=== PATIENT | female | born 1950 | race Caucasian/White ===

== ENCOUNTER 2016-08-17 09:02 | Observation (INO) ==
[2016-08-17] MEDS ORDERED: Ipratropium/Albuterol Neb 3 ML IH ONE (09:28)
[2016-08-17] MEDS ORDERED: Albuterol 2.5 MG/3 ML NEBULIZER IH ONE (09:28)
[2016-08-17] MEDS ORDERED: predniSONE 20 MG TABLET PO ONE (09:28)
--- NOTE | 2016-08-17 09:32 | Emergency Department Note ---
Disposition Clinical Impression: COPD exacerbation Disposition: Admitted As Inpatient Condition: Good Referrals: Aaron Mays DO [Primary Care Provider] - Forms: ED Satisfaction Letter Time of Disposition: 11:02 SOB HPI - General Chief Complaint: ED Chest Pain Stated Complaint: chest Pain/diff breathing Time Seen by Provider: 08/17/16 09:25 Source: patient Mode of arrival: EMS Limitations: no limitations Nursing Notes Reviewed: Yes Vital Signs Reviewed: Yes - History of Present Illness 66-year-old white female presents with difficulty breathing. She woke up around 8 AM and was short of breath. She states a short while later she developed some burning in her lower sternal area. This lasted about an hour and went away. She has had a cough for a month. She has been treated for bronchitis and finished antibiotics up on Wednesday. Her cough continues. It is intermittently productive of yellowish sputum. No fever. She states she was started on nebulizer treatments within the last month since she developed a bronchitis. She last used her nebulizer this morning. She states she is using it "about 2 times a day". She has a history of lung cancer, and had a lobectomy about 3 years ago. She continues to smoke one pack per day. Pt Subjective Complaint: shortness of breath, cough Onset (ago): hour(s) (1) Context: recent illness Severity: moderate Consistency/Duration: constant Improves with: nothing Worsens with: coughing Known history of: COPD, other (Lung cancer, bronchitis) Associated symptoms: Reports: chest pain (Burning lower sternal pain), cough, sputum production Treatment prior to arrival: none Cough present: Yes Cough Description: Involuntary Cough Frequency: Intermittent Sputum production: Yes Sputum Amount: Small Sputum Color: Yellow - Related Data Home oxygen amount: none Home Medications Medication Instructions Recorded Confirmed Aspirin [Lo-Dose Aspirin EC] 81 mg PO DAILY 08/17/16 08/17/16 Atenolol [Tenormin] 25 mg PO DAILY 08/17/16 08/17/16 Clopidogrel [Plavix] 75 mg PO DAILY 08/17/16 08/17/16 Lisinopril [Zestril] 10 mg PO DAILY 08/17/16 08/17/16 Lovastatin [Altoprev] 20 mg PO DAILY 08/17/16 08/17/16 Metformin HCl [Metformin HCl ER] 500 mg PO DAILY 08/17/16 08/17/16 NIFEdipine [Nifedipine] 60 mg PO DAILY 08/17/16 08/17/16 Omeprazole [PriLOSEC] 20 mg PO DAILY 08/17/16 08/17/16 Allergies Allergy/AdvReac Type Severity Reaction Status Date / Time levofloxacin [From Levaquin] Allergy Hives Verified 08/17/16 09:21 Sulfa (Sulfonamide Allergy Heartburn Verified 08/17/16 09:21 Antibiotics) All systems ED: reviewed and negative except as stated. Constitutional: Denies: fever, chills Eyes: Denies: eye discharge ENT ED: Denies: ear pain, throat pain Cardiovascular: Reports: chest pain Respiratory: Reports: cough, dyspnea, wheezes, sputum production Gastrointestinal: Denies: abdominal pain, nausea, vomiting Musculoskeletal: Denies: back pain Past Medical History - Past Medical History Medical history: Reports: cancer, diabetes, hypertension Psychiatric history: Reports: no psych history - Social History Smoking Status: Current every day smoker Smokeless Tobacco Status: No Alcohol use: Reports: none Drug use: Reports: none Physical Exam - General Limitations: no limitations General appearance: alert, in no apparent distress - Head Head exam: atraumatic, normocephalic - Eye Eye exam: Present: PERRL, EOMI. Absent: scleral icterus, conjunctival injection - ENT ENT exam: normal oropharynx, mucous membranes moist, TM's normal bilaterally - Neck Neck exam: Present: normal inspection, full ROM, trachea midline. Absent: tenderness, lymphadenopathy - Chest Chest inspection: Present: normal inspection, symmetric chest wall rise, other ( No retractions or intercostal muscle use) - Respiratory Respiratory exam: Present: wheezes (Moderate bilateral expiratory), prolonged expiratory phase. Absent: respiratory distress, accessory muscle use - Cardiovascular Cardiovascular exam: Present: regular rate, normal rhythm, normal heart sounds - Abdominal Exam Abdominal exam: Present: soft, Non-Tender, normal bowel sounds. Absent: organomegaly, mass - Extremities Exam Extremities exam: Present: normal inspection, full ROM, normal capillary refill. Absent: calf tenderness - Neurological Exam Neurological exam: Present: alert, oriented X3. Absent: motor sensory deficit - Psychiatric Psychiatric exam: Present: normal affect, normal mood - Skin Skin exam: Present: warm, dry, intact, normal color Course - Reevaluation(s) Reevaluation #1: Clinically she feels somewhat better. Her exam is not significantly changed. When she coughs or moves around in bed her O2 saturation dropped down to 88%. He spoke with the patient about hospitalization. She is agreeable. Dr. Wayne will be paged. Time: 10:59 Vital Signs Temperature 98.0 F 08/17/16 09:05 Pulse Rate 104 08/17/16 09:05 Respiratory Rate 24 08/17/16 09:05 Blood Pressure 149/71 08/17/16 09:05 O2 Sat by Pulse Oximetry 92 08/17/16 09:05 Temperature 98.0 F 08/17/16 09:07 Pulse Rate 105 08/17/16 10:57 Respiratory Rate 18 08/17/16 10:57 Blood Pressure 123/58 08/17/16 10:57 O2 Sat by Pulse Oximetry 95 08/17/16 10:58 Oxygen Delivery Oxygen Delivery Room Air Shortness of Breath/Dyspnea - MDM Narrative Medical decision making narrative: Differential includes but is not limited to COPD exacerbation, bronchitis, pneumonia, pulmonary embolus, angina, congestive heart failure, pneumothorax, pleurisy. - Medical Records Her presentation and workup are consistent with a COPD exacerbation. There is no evidence of pneumonia or pneumothorax. There is no evidence of congestive heart pain are. No evidence of any acute cardiac injury. No arrhythmias. - Lab Data Lab results reviewed: Yes I reviewed the patient's lab results. Result diagrams: 08/17/16 09:46 08/17/16 09:46 Lab Results 08/17/16 08/17/16 08/17/16 Range/Units 09:46 09:46 09:46 WBC 11.6 H (4.3-11.1) K/mcL RBC 4.60 (3.82-4.97) M/mcL Hgb 14.2 (11.5-15.4) g/dL Hct 41.5 (35.3-44.9) % MCV 90.2 (83.0-100.0) fL MCH 30.9 (28.0-33.3) pg MCHC 34.2 (31.6-35.5) g/dL RDW 13.2 (11.5-14.5) % Plt Count 310 (140-400) K/mcL MPV 9.8 (9.4-12.4) fL Immature Gran % 1.0 (0-4) % Seg Neutrophils % 72.4 % Lymphocytes % 16.3 % Monocytes % 7.5 % Eosinophils % 2.2 % Basophils % 0.6 % Neutrophils # 8.4 (1.6-8.9) K/mcL Lymphocytes # 1.9 (0.6-4.6) K/mcL Monocytes # 0.9 (0.0-1.3) K/mcL Eosinophils # 0.3 (0.0-0.6) K/mcL Basophils # 0.1 (0.0-0.2) K/mcL Sodium 143 (136-145) mEq/L Potassium 4.5 (3.5-4.5) mEq/L Chloride 108 (98-109) mEq/L Carbon Dioxide 24 (19-29) mEq/L BUN 13 (7-20) mg/dL Creatinine 1.05 (0.57-1.11) mg/dL Est GFR ( Amer) > 60 (> 60) Est GFR (Non-Af Amer) 52 L (> 60) BUN/Creatinine Ratio 12 (6-26) Glucose 166 H (70-99) mg/dL Calculated Osmolality 300 (280-300) Calcium 9.2 (8.6-10.8) mg/dL Total Bilirubin 0.6 (0.2-1.2) mg/dL AST 12 (5-34) Units/L ALT 12 (0-55) Units/L Alkaline Phosphatase 91 (38-126) Units/L Troponin I 0.00 (0-0.03) ng/mL B-Natriuretic Peptide (0-100) pg/mL Serum Total Protein 7.1 (6.0-8.3) g/dL Albumin 3.4 L (3.5-5.0) g/dL Globulin 3.7 H (2.4-3.5) g/dL Albumin/Globulin Ratio 0.9 L (1.1-2.2) 08/17/16 Range/Units 09:46 WBC (4.3-11.1) K/mcL RBC (3.82-4.97) M/mcL Hgb (11.5-15.4) g/dL Hct (35.3-44.9) % MCV (83.0-100.0) fL MCH (28.0-33.3) pg MCHC (31.6-35.5) g/dL RDW (11.5-14.5) % Plt Count (140-400) K/mcL MPV (9.4-12.4) fL Immature Gran % (0-4) % Seg Neutrophils % % Lymphocytes % % Monocytes % % Eosinophils % % Basophils % % Neutrophils # (1.6-8.9) K/mcL Lymphocytes # (0.6-4.6) K/mcL Monocytes # (0.0-1.3) K/mcL Eosinophils # (0.0-0.6) K/mcL Basophils # (0.0-0.2) K/mcL Sodium (136-145) mEq/L Potassium (3.5-4.5) mEq/L Chloride (98-109) mEq/L Carbon Dioxide (19-29) mEq/L BUN (7-20) mg/dL Creatinine (0.57-1.11) mg/dL Est GFR ( Amer) (> 60) Est GFR (Non-Af Amer) (> 60) BUN/Creatinine Ratio (6-26) Glucose (70-99) mg/dL Calculated Osmolality (280-300) Calcium (8.6-10.8) mg/dL Total Bilirubin (0.2-1.2) mg/dL AST (5-34) Units/L ALT (0-55) Units/L Alkaline Phosphatase (38-126) Units/L Troponin I (0-0.03) ng/mL B-Natriuretic Peptide 27 (0-100) pg/mL Serum Total Protein (6.0-8.3) g/dL Albumin (3.5-5.0) g/dL Globulin (2.4-3.5) g/dL Albumin/Globulin Ratio (1.1-2.2) - Radiology Data Radiology results reviewed: Yes I reviewed the patient's radiology results. ITS Impressions Chest X-Ray 08/17/16 09:26 IMPRESSION: No evidence of acute cardiopulmonary disease. D/ / Dalton Greenberg MD / Dalton Greenberg MD Interpreting Provider: Dalton Greenberg MD - EKG Data EKG attestation: Yes I reviewed and interpreted this EKG. EKG results narrative: Sinus rhythm, rate of 95, no acute changes. Rhythm Shows sinus rhythm with rate of 95, IN interval 161 ms, QRS 80 ms with no other ectopy is interpreted by me.
[2016-08-17 09:57] LABS: Basophils # 0.1 K/mcL (0.0-0.2); Basophils % 0.6 %; Eosinophils # 0.3 K/mcL (0.0-0.6); Eosinophils % 2.2 %; Hematocrit 41.5 % (35.3-44.9); Hemoglobin 14.2 g/dL (11.5-15.4); Lymphocytes # 1.9 K/mcL (0.6-4.6); Lymphocytes % 16.3 %; Mean Corpuscular HGB Conc 34.2 g/dL (31.6-35.5); Mean Corpuscular Hemoglobin 30.9 pg (28.0-33.3); Mean Corpuscular Volume 90.2 fL (83.0-100.0); Mean Platelet Volume 9.8 fL (9.4-12.4); Monocytes # 0.9 K/mcL (0.0-1.3); Monocytes % 7.5 %; Neutrophils # 8.4 K/mcL (1.6-8.9); Platelet Count 310 K/mcL (140-400); Red Cell Distribution Width 13.2 % (11.5-14.5); Segmented Neutrophils % 72.4 %
[2016-08-17 10:18] LABS: Alanine Aminotransferase 12 Units/L (0-55); Albumin 3.4 g/dL (3.5-5.0); Albumin/Globulin Ratio 0.9 (1.1-2.2); Alkaline Phosphatase 91 Units/L (38-126); Aspartate Amino Transferase 12 Units/L (5-34); BUN/Creatinine Ratio 12 (6-26); Bilirubin,Total 0.6 mg/dL (0.2-1.2); Blood Urea Nitrogen 13 mg/dL (7-20); Calcium 9.2 mg/dL (8.6-10.8); Carbon Dioxide 24 mEq/L (19-29); Chloride 108 mEq/L (98-109); Globulin 3.7 g/dL (2.4-3.5); Glucose 166 mg/dL (70-99); Osmolality,Calculated 300 (280-300); Potassium 4.5 mEq/L (3.5-4.5); Sodium 143 mEq/L (136-145); Total Protein 7.1 g/dL (6.0-8.3); eGFR For African Americans > 60 (> 60); eGFR For Non-African Americans 52 (> 60)
[2016-08-17] MEDS ORDERED: Acetaminophen 325 MG TABLET PO PRN (12:00)
[2016-08-17] MEDS: Ipratropium/Albuterol Neb 3 ML IH SCH ×2 (12:00→16:33)
[2016-08-17] MEDS ORDERED: Ondansetron ODT 4 MG TAB.RAPDIS SL PRN (12:00)
[2016-08-17] MEDS ORDERED: MethylPREDNISolone 40 MG/ML VIAL IVP SCH ×2 (12:00→17:00)
[2016-08-17] MEDS ORDERED: Naloxone 0.4 MG/ML INJ IVP PRN (12:00)
--- NOTE | 2016-08-17 13:16 | Electrocardiograph Report ---
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
--- NOTE | 2016-08-17 17:05 | Internal Med History&Physical ---
Date of Encounter: 08/17/16 Time of Encounter: 16:35 Assessment and Plan (1) COPD exacerbation Current visit: Yes Status: Acute She received prednisone in emergency room. I do not think there is significant infection and will not give antibiotic at this time. Will order d-dimer since she has history of lung cancer (2) Azotemia Current visit: Yes Status: Acute Duration unknown since no previous labs are available for review. We will recheck labs in a.m. Internal Medicine - H&P: HPI Chief complaint: Dyspnea Admitted From: Home Plans for Post Hospital Care: Home History of present illness: Ms. Starks is a 66 year old female who states she developed dyspnea shortly after awakening while doing usual activities. She developed a discomfort in her chest that she describes as a "stinging" near the epigastrium. She rates the pain level at 4/10. She took a baby aspirin but when the pain did not improve after a few minutes she called the squad. By the time the squad arrived her dyspnea was lessening. She came to emergency room and was evaluated and felt to have exacerbation of COPD. She was admitted to [facility] floor for ongoing care needs. She states her dyspnea has improved further and she feels near her baseline now. Her respiratory history is significant for having smoked since age 15 up to 1 pack per day. She has a diagnosis of COPD. She does not use home oxygen. She was diagnosed with bronchitis approximately 3 weeks ago and has been seen twice in [facility] emergency room and once at urgent care in the last 3 weeks. She has received a Z-Latrell and a second antibiotic(name unknown) as well as a 5 day course of steroids, Claritin, and cough medication. She has continued to smoke. She was diagnosed with right lung cancer (cell type unknown) in 2013 and underwent lobectomy which apparently was curative. She had no postoperative chemotherapy or XRT. She follows annually in [place] with a physician to monitor malignancy. Her last chest CT was 2016. Past Med Surg Social Fam HX - Past Medical History Medical history: cancer, diabetes, hypertension Psychiatric history: no psych history - Social History Smoking Status: Current every day smoker Smokeless Tobacco Status: No Alcohol use: none Drug use: none Internal Medicine - H&P: Meds Aspirin [Lo-Dose Aspirin EC] 81 mg PO DAILY 08/17/16 [History] Atenolol [Tenormin] 25 mg PO DAILY 08/17/16 [History] Clopidogrel [Plavix] 75 mg PO DAILY 08/17/16 [History] Lisinopril [Zestril] 10 mg PO DAILY 08/17/16 [History] Lovastatin [Altoprev] 20 mg PO DAILY 08/17/16 [History] Metformin HCl [Metformin HCl ER] 500 mg PO DAILY 08/17/16 [History] NIFEdipine [Nifedipine] 60 mg PO DAILY 08/17/16 [History] Omeprazole [PriLOSEC] 20 mg PO DAILY 08/17/16 [History] Allergies levofloxacin [From Levaquin] Allergy (Verified 08/17/16 09:21) Hives Sulfa (Sulfonamide Antibiotics) Allergy (Verified 08/17/16 09:21) Heartburn All Systems PM: A 10-system review of systems was performed and is negative for pertinent findings except as documented above in the HPI. Review of systems: Gen.: She states her weight is been stable the past 2 months Cardiovascular: She has history of hypertension but denies [place] heart failure angina DVT or pulmonary embolus Respiratory: As per history of present illness GI: She has had cholecystectomy. She denies disorders of her liver or exceeding pancreas. : She had mild azotemia and emergency room [place] 1.05 and estimated GFR 52. She denied previous diagnosis of chronic kidney disease. She denies other kidney or bladder disorders Neurologic: She denies large distribution strokes or seizures Endocrine: She was diagnosed with DM 2 approximately 2006. She has hyperlipidemia but denies thyroid disease Hematology/oncology: She had lung cancer as mentioned per she denies other internal malignancies or anemia Psychiatric: She denies anxiety depression or other mental health issues [place] skeletal: She had cervical fusion and knee and bilateral shoulder surgery in the past. - Constitutional Vitals: Temp Pulse Resp BP Pulse Ox 98.0 F 106 16 126/69 94 08/17/16 12:11 08/17/16 12:11 08/17/16 16:33 08/17/16 12:11 08/17/16 16:33 Exam: Gen.: She is a well developed well-nourished female lying in bed who appears in no acute distress. HEENT: Head is atraumatic and normocephalic. Eyes: EOMI. There is no scleral icterus. Mouth: Mucosa is moist. Neck: Supple and nontender. There is no thyromegaly or adenopathy noted. Heart: Regular without murmurs gallops or ectopics Lungs: No wheezes or crackles are heard. She has equivocal pleural friction rub in the left basilar area. Abdomen: Soft and nontender. No masses or guarding noted. Extremities: There is no cyanosis edema or clubbing noted. Dorsalis pedis and posterior tibial pulses are 1-2 over 2 bilaterally. Neurologic: Mental status: She is talkative and a good historian. Cranial nerves: Smile is symmetric. Forehead wrinkles bilaterally. Tongue protrudes midline. EOMI. Motor: There is no pronator drift. Cerebellar: Finger to nose is intact bilaterally. Skin: Warm and dry Internal Med - H&P Results - Labs CBC & Chem 7: 08/17/16 09:46 08/17/16 09:46
[2016-08-17] MEDS ORDERED: Albuterol 2.5 MG/3 ML NEBULIZER IH PRN (17:14)
[2016-08-17] MEDS: predniSONE 20 MG TABLET PO SCH (18:21)
[2016-08-17] MEDS ORDERED: *HR* Dextrose 50 % in Water (Syg) 50 ML SYRINGE IVP PRN (20:30)
[2016-08-17] MEDS ORDERED: Dextrose Gel 15 GM PO PRN ×2 (20:30)
[2016-08-17] MEDS ORDERED: D5% in Water 1,000 ML IVC PRN (20:30)
[2016-08-17] MEDS: Insulin LISPRO 300 UNITS/3 ML VIAL SQ SCH ×2 (20:57→21:02)
[2016-08-18 05:20] LABS: Basophils % 0.2 %; Hematocrit 37.4 % (35.3-44.9); Hemoglobin 12.8 g/dL (11.5-15.4); Lymphocytes # 1.2 K/mcL (0.6-4.6); Lymphocytes % 6.9 %; Mean Corpuscular HGB Conc 34.2 g/dL (31.6-35.5); Mean Corpuscular Hemoglobin 30.8 pg (28.0-33.3); Mean Corpuscular Volume 90.1 fL (83.0-100.0); Mean Platelet Volume 9.8 fL (9.4-12.4); Monocytes # 0.6 K/mcL (0.0-1.3); Monocytes % 3.5 %; Platelet Count 270 K/mcL (140-400); Red Blood Count 4.15 M/mcL (3.82-4.97); Red Cell Distribution Width 13.1 % (11.5-14.5); Segmented Neutrophils % 88.4 %
[2016-08-18 05:27] LABS: Neutrophils # 15.5 K/mcL (1.6-8.9)
[2016-08-18 05:41] LABS: BUN/Creatinine Ratio 15 (6-26); Blood Urea Nitrogen 14 mg/dL (7-20); Calcium 8.8 mg/dL (8.6-10.8); Carbon Dioxide 21 mEq/L (19-29); Chloride 107 mEq/L (98-109); Glucose 278 mg/dL (70-99); Osmolality,Calculated 298 (280-300); Potassium 4.4 mEq/L (3.5-4.5); Sodium 139 mEq/L (136-145); eGFR For African Americans > 60 (> 60); eGFR For Non-African Americans 59 (> 60)
[2016-08-18] MEDS ORDERED: *HR* Enoxaparin 30 MG/0.3 ML SYRINGE SQ SCH (06:00)
[2016-08-18] MEDS: predniSONE 20 MG TABLET PO SCH (07:28)
[2016-08-18] MEDS ORDERED: Insulin LISPRO 300 UNITS/3 ML VIAL SQ SCH (07:30)
[2016-08-18 08:25] VITALS: BP 122/57
[2016-08-18] MEDS ORDERED: *HR* Metformin 500 MG TABLET PO SCH (09:00)
[2016-08-18] MEDS ORDERED: Aspirin Enteric Coated 81 MG Tablet PO SCH (09:00)
[2016-08-18] MEDS ORDERED: NIFEdipine XL (24 HR) 30 MG TAB.ER.24 PO SCH (09:00)
--- NOTE | 2016-08-18 09:49 | Discharge Summary ---
Date of Encounter: 08/18/16 Time of Encounter: 09:35 - Discharge Diagnosis (1) COPD exacerbation Priority: Primary Status: Acute (2) Azotemia Priority: Secondary Status: Acute - Discharge Medications Prescriptions: Albuterol Sulfate [Proair Hfa] 2 puff IH Q4H PRN #1 inh PRN Reason: Dyspnea Home Medications: Aspirin [Lo-Dose Aspirin EC] 81 mg PO DAILY 08/17/16 [History] Atenolol [Tenormin] 25 mg PO DAILY 08/17/16 [History] Clopidogrel [Plavix] 75 mg PO DAILY 08/17/16 [History] Lisinopril [Zestril] 10 mg PO DAILY 08/17/16 [History] Lovastatin [Altoprev] 20 mg PO DAILY 08/17/16 [History] Metformin HCl [Metformin HCl ER] 500 mg PO DAILY 08/17/16 [History] NIFEdipine [Nifedipine] 60 mg PO DAILY 08/17/16 [History] Omeprazole [PriLOSEC] 20 mg PO DAILY 08/17/16 [History] Albuterol Sulfate [Proair Hfa] 2 puff IH Q4H PRN #1 inh 08/18/16 [Rx] Allergies/Adverse Reactions: Allergies levofloxacin [From Levaquin] Allergy (Verified 08/17/16 09:21) Hives Sulfa (Sulfonamide Antibiotics) Allergy (Verified 08/17/16 09:21) Heartburn Date of admission: 08/17/16 11:25 Primary care physician: Aaron Mays DO - Patient Status Disposition: Home, Self-Care Condition: Good Functional capacity at discharge: independent ambulation Overall status at discharge: patient is progressing back to baseline - Discharge Instructions Follow Up With: Aaron Mays DO [Primary Care Provider] - 1 week - Diet and Activity Activity: resume usual activities as tolerated Diet: advance to your usual diet Hospital course: Ms. Starks is a 66 year old female who states she developed dyspnea shortly after awakening while doing usual activities. She developed a discomfort in her chest that she describes as a "stinging" near the epigastrium. She rates the pain level at 4/10. She took a baby aspirin but when the pain did not improve after a few minutes she called the squad. By the time the squad arrived her dyspnea was lessening. She came to emergency room and was evaluated and felt to have exacerbation of COPD. She was admitted to [facility] for ongoing care needs. Initial orders were written by the emergency room physician. I saw her on August 17 and performed a history and physical. I continued oral prednisone but did not give further antibiotics since she had completed 2 previous courses of antibiotics in the last 3 weeks. She remained afebrile during her hospital stay. Her breathing returned to baseline. A d-dimer returned normal at 458. Creatinine decreased to 0.9 with estimated GFR rising to 59 on 08/18/2016. When I saw her on August 18 she felt improved and backed her baseline. She wished to be discharged on which I felt was reasonable. A 6 minute walk will be done prior to discharge to evaluate her for home oxygen need. She will follow with her PCP Dr. Mays within 1 week. I encouraged her strongly to discontinue smoking. I gave her a prescription for ProAir HFA MDI for prn use. - Time Spent with Patient Total time spent providing and/or coordinating discharge services: - Constitutional Vitals: Temp Pulse Resp BP Pulse Ox 98.0 F 90 20 122/57 95 08/18/16 06:34 08/18/16 08:24 08/18/16 08:24 08/18/16 08:24 08/18/16 08:42
== END 2016-08-18 11:10 | disposition home or self-care (01) ==
LOC: INPPIK 09:02 → EMEROOPIK 09:02 → INPPIK 11:49
PROVIDERS: ADMIT Internal Medicine; ATTEND Internal Medicine

== ENCOUNTER 2019-01-17 20:01 | Inpatient (IN) ==
[2019-01-17] MEDS ORDERED: Albuterol 2.5 MG/3 ML NEBULIZER IH ONE (20:02)
[2019-01-17] MEDS ORDERED: cefTRIAXone 1,000 MG in Water for inj. (sterile) 10 ML IVP ONE (20:02)
[2019-01-17] MEDS ORDERED: Ipratropium/Albuterol Neb 3 ML IH ONE (20:02)
[2019-01-17] MEDS ORDERED: methylPREDNISolone 125 MG/2 ML VIAL IVP ONE (20:02)
[2019-01-17 20:24] LABS: Basophils % 0.1 %; Hematocrit 39.4 % (35.3-44.9); Hemoglobin 13.4 g/dL (11.5-15.4); Immature Granulocytes % 0.6 % (0-4); Lymphocytes % 7.3 %; Mean Corpuscular Hemoglobin 30.7 pg (28.0-33.3); Mean Corpuscular Volume 90.4 fL (83.0-100.0); Mean Platelet Volume 9.8 fL (9.4-12.4); Monocytes # 0.7 K/mcL (0.0-1.3); Monocytes % 3.9 %; Neutrophils # 15.1 K/mcL (1.6-8.9); Platelet Count 256 K/mcL (140-400); Red Blood Count 4.36 M/mcL (3.82-4.97); Red Cell Distribution Width 13.5 % (11.5-14.5); Segmented Neutrophils % 88.1 %; White Blood Count 17.1 K/mcL (4.3-11.1)
[2019-01-17 20:25] LABS: Lymphocytes # 1.3 K/mcL (0.6-4.6)
[2019-01-17 20:32] LABS: INR 1.1; Prothrombin Time 12.1 Seconds (9.4-12.1)
[2019-01-17 20:43] LABS: BUN/Creatinine Ratio 21 (6-26); Blood Urea Nitrogen 21 mg/dL (8-23); Calcium 9.1 mg/dL (8.6-10.3); Carbon Dioxide 22 mEq/L (23-29); Chloride 110 mEq/L (98-107); Glucose 220 mg/dL (70-105); Osmolality,Calculated 306 (280-300); Potassium 3.8 mEq/L (3.5-5.1); Sodium 143 mEq/L (136-145); eGFR For African Americans > 60 (> 60); eGFR For Non-African Americans 54 (> 60)
[2019-01-17 20:44] LABS: Troponin I < 0.03 ng/mL (< 0.04)
[2019-01-17 20:50] LABS: ABG Base Excess -2 mEq/L (-2 to 3); ABG HCO3 23 mEq/L (21-27); ABG Oxygen Saturation 95 % (95-98); ABG PCO2 36 mmHg (35-45); ABG PH 7.41 pH Units (7.32-7.45); ABG PO2 72 mmHg (85-104); ABG TCO2 24 mEq/L (20-26)
[2019-01-17] MEDS: Budesonide/Formoterol 160/4.5 1 PUFF INH IH SCH (23:21)
[2019-01-17] MEDS ORDERED: 0.9 % Sodium Chloride 1,800 ML IV ONE (23:30)
[2019-01-17] MEDS: Azithromycin 500 MG in 0.9 % Sodium Chloride 250 ML IVPB SCH (23:50)
[2019-01-18 05:32] LABS: Basophils % 0.2 %; Hematocrit 33.6 % (35.3-44.9); Hemoglobin 11.2 g/dL (11.5-15.4); Immature Granulocytes % 0.7 % (0-4); Lymphocytes # 0.9 K/mcL (0.6-4.6); Lymphocytes % 7.4 %; Mean Corpuscular HGB Conc 33.3 g/dL (31.6-35.5); Mean Corpuscular Hemoglobin 30.5 pg (28.0-33.3); Mean Corpuscular Volume 91.6 fL (83.0-100.0); Mean Platelet Volume 10.2 fL (9.4-12.4); Monocytes # 0.2 K/mcL (0.0-1.3); Monocytes % 1.9 %; Neutrophils # 10.9 K/mcL (1.6-8.9); Platelet Count 216 K/mcL (140-400); Red Blood Count 3.67 M/mcL (3.82-4.97); Red Cell Distribution Width 13.6 % (11.5-14.5); Segmented Neutrophils % 89.8 %; White Blood Count 12.1 K/mcL (4.3-11.1)
[2019-01-18 05:52] LABS: Alanine Aminotransferase 14 Units/L (7-52); Albumin 3.6 g/dL (3.5-5.7); Albumin/Globulin Ratio 1.6 (1.1-2.2); Alkaline Phosphatase 66 Units/L (34-104); Aspartate Amino Transferase 17 Units/L (13-39); BUN/Creatinine Ratio 20 (6-26); Bilirubin,Total 0.2 mg/dL (0.3-1.0); Blood Urea Nitrogen 17 mg/dL (8-23); Calcium 7.8 mg/dL (8.6-10.3); Carbon Dioxide 22 mEq/L (23-29); Chloride 113 mEq/L (98-107); Globulin 2.3 g/dL (2.4-3.5); Glucose 267 mg/dL (70-105); Osmolality,Calculated 307 (280-300); Potassium 4.1 mEq/L (3.5-5.1); Sodium 143 mEq/L (136-145); Total Protein 5.9 g/dL (6.4-8.9); eGFR For African Americans > 60 (> 60); eGFR For Non-African Americans > 60 (> 60)
[2019-01-18] MEDS: Budesonide/Formoterol 160/4.5 1 PUFF INH IH SCH ×2 (08:41→23:00)
[2019-01-18] MEDS: NIFEdipine XL (24 HR) 30 MG TAB.ER.24 PO SCH (09:00)
[2019-01-18] MEDS ORDERED: METFORMIN HCL 500 MG PO SCH (09:00)
[2019-01-18] MEDS ORDERED: cefTRIAXone 1,000 MG in Water for inj. (sterile) 10 ML IVP SCH (09:00)
[2019-01-18] MEDS ORDERED: Ipratropium/Albuterol Neb 3 ML IH SCH (09:00)
[2019-01-18] MEDS: *HR* Glimepiride 2 MG TABLET PO SCH (09:00)
[2019-01-18] MEDS ORDERED: MethylPREDNISolone 40 MG/ML VIAL IVP SCH (09:00)
[2019-01-18] MEDS ORDERED: predniSONE 20 MG TABLET PO SCH (09:00)
[2019-01-18] MEDS: MethylPREDNISolone 40 MG/ML VIAL IVP SCH ×2 (09:01→20:12)
[2019-01-18] MEDS: cefTRIAXone 1,000 MG in Water for inj. (sterile) 10 ML IVP SCH (09:01)
[2019-01-18] MEDS: Ipratropium/Albuterol Neb 3 ML IH SCH ×2 (16:28→23:00)
[2019-01-19] MEDS: Azithromycin 500 MG in 0.9 % Sodium Chloride 250 ML IVPB SCH (03:11)
[2019-01-19] MEDS: Ipratropium/Albuterol Neb 3 ML IH SCH (05:12)
[2019-01-19 08:12] VITALS: BP 129/65
[2019-01-19] MEDS: MethylPREDNISolone 40 MG/ML VIAL IVP SCH (08:47)
[2019-01-19] MEDS: *HR* Glimepiride 2 MG TABLET PO SCH (08:47)
[2019-01-19] MEDS: cefTRIAXone 1,000 MG in Water for inj. (sterile) 10 ML IVP SCH (08:47)
[2019-01-19] MEDS: NIFEdipine XL (24 HR) 30 MG TAB.ER.24 PO SCH (08:47)
[2019-01-19] MEDS ORDERED: Cefuroxime PO 250 MG TABLET PO SCH (21:00)
== END 2019-01-19 10:00 | disposition home or self-care (01) | DRG 872 ==
LOC: EMEROOPIK 20:01 → INPPIK 20:01 → OBSVTOIN 21:38 → INPPIK 22:03
PROVIDERS: ADMIT Family Medicine; ATTEND Family Medicine